=== PATIENT | female | born 2000 | race Caucasian/White ===

== ENCOUNTER 2021-11-24 00:12 | Emergency (ER) | payer BC ==
[2021-11-24] MEDS ORDERED: Sodium Chloride 0.9% 1000 ML 1,000 ML IV STA (00:41)
[2021-11-24] MEDS ORDERED: Zofran 4 MG/2 ML VIAL IV ONE (00:41)
[2021-11-24] MEDS ORDERED: TORAdol 30 mg Injection IV ONE (00:41)
[2021-11-24] MEDS ORDERED: Zofran 4 MG/2 ML VIAL ONE (00:45)
[2021-11-24] MEDS ORDERED: Sodium Chloride 0.9% 1000 ML 1,000 ML ONE (00:45)
[2021-11-24] MEDS ORDERED: TORAdol 30 mg Injection ONE (00:45)
[2021-11-24 00:55] LABS: Absolute Neutrophil Ct (ANC) 11.47 x10^3/uL (1.4-6.9); Basophil (Absolute #) 0.03 x10^3/uL (0-0.4); Eosinophil % 0.2 % (0.00-5.0); Eosinophil (Absolute #) 0.02 x10^3/uL (0-0.5); Hematocrit 41.8 % (35-47); Hemoglobin 13.8 g/dL (12.0-16.0); Lymphocyte (Absolute #) 1.01 x10^3/uL (1.0-4.6); Lymphocytes % 7.8 % (24.0-44.0); Mean Cell Volume 92.7 fL (78-100); Mean Corpuscular Hemoglobin 30.6 pg (26-32); Mean Platelet Volume 9.3 fL (7.5-11.0); Monocytes % 2.3 % (0.0-12.0); Neutrophil % 89.1 % (36.0-66.0); Platelet Count 343 x10^3/uL (150-450); Red Blood Count 4.51 x10^6/uL (4.1-5.4); Red Cell Distribution Width 12.6 % (11.5-14.0); White Blood Count 12.9 x10^3/uL (4.0-10.5)
--- NOTE | 2021-11-24 00:56 | ERPHSYRPT ---
- History of Present Illness Time Seen by Provider: 11/24/21 00:40 Historian: patient, family Exam Limitations: no limitations Patient Subjective Stated Complaint: pt states "I [place] [facility] [place] said [place] had a kidney stone. The pain is so bad." Triage Nursing Assessment: pt ambulated into the er; pt is axo x4; c/o left flank pain and LLQ pain; pt states 10/10 pain to LLQ and left flank pain; hyperactive bowel sounds in all quads; tenderness to LLQ; c/o constipation; urine yellow and cloudy; pt states burning and pain with urination; vitals wnl Physician History: This is a 21-year-old white female who was seen at [facility] approximately 3 days ago because of pain in the left flank area. Patient was told that she had a negative test and that there was evidence of a kidney stone present. No CAT scan was obtained. Patient refuses any narcotic pain medication at this time. She has had nausea. She has had no vomiting or diarrhea. The pain is moving caudally in the back area. It is not improving. Patient does not have much belly pain. It is in the flank area primarily on the left side. The pain came on suddenly 3 days ago. She is never had anything like this before Timing/Duration: day(s) (3) Activities at Onset: none Quality: aching, pressure Abdominal Pain Onset Location: flank (Left flank) Pain Radiation: flank Severity of Pain-Max: moderate Severity of Pain-Current: moderate Modifying Factors: Improves With: nothing Associated Symptoms: denies symptoms Previous symptoms: no prior history Allergies/Adverse Reactions: No Known Drug Allergies Allergy (Unverified 11/24/21 00:26) Hx Tetanus, Diphtheria Vaccination/Date Given: No Hx Influenza Vaccination/Date Given: Yes Hx Pneumococcal Vaccination/Date Given: No Immunizations Up to Date: No Travel Risk - International Travel Have you traveled outside of the country in past 3 weeks: No - Coronavirus Screening Are you exhibiting any of the following symptoms?: No Close contact with a COVID-19 positive Pt in past 14-21 Days: No - Vaccine Status Have you recieved a Covid-19 vaccination: No - Review of Systems Constitutional: No Symptoms Eyes: No Symptoms Ears, Nose, & Throat: No Symptoms Respiratory: No Symptoms Cardiac: No Symptoms Abdominal/Gastrointestinal: No Symptoms Genitourinary Symptoms: Flank Pain (Left flank pain) Musculoskeletal: No Symptoms Skin: No Symptoms Neurological: No Symptoms Psychological: No Symptoms Endocrine: No Symptoms Hematologic/Lymphatic: No Symptoms Immunological/Allergic: No Symptoms All Other Systems: Reviewed and Negative - Past Medical History Pertinent Past Medical History: No - Past Surgical History Past Surgical History: Yes - Social History Smoking Status: Never smoker Exposure to second hand smoke: No Drug Use: none Patient Lives Alone: No - Female History Hx Now: No - Nursing Vital Signs Nursing Vital Signs: Initial Vital Signs Temperature 97.8 F 11/24/21 00:27 Pulse Rate 98 H 11/24/21 00:27 Respiratory Rate 20 11/24/21 00:27 Blood Pressure 130/84 11/24/21 00:27 O2 Sat by Pulse Oximetry 99 11/24/21 00:27 Pain Scale Pain Intensity 5 - Physical Exam General Appearance: mild distress, alert, anxiety Eye Exam: PERRL/EOMI, eyes nml inspection Ears, Nose, Throat Exam: normal ENT inspection, moist mucous membranes Neck Exam: normal inspection, non-tender, supple, full range of motion Respiratory Exam: normal breath sounds, lungs clear, No chest tenderness, No respiratory distress Cardiovascular Exam: regular rate/rhythm, normal heart sounds, normal peripheral pulses Gastrointestinal/Abdomen Exam: soft, normal bowel sounds, No tenderness Pelvic Exam: not done Rectal Exam: not done Back Exam: normal inspection, normal range of motion, CVA tenderness (Left side), No vertebral tenderness Extremity Exam: normal inspection, normal range of motion, pelvis stable Neurologic Exam: alert, oriented x 3, cooperative, ear nose throat physician II-XII nml as tested, normal mood/affect, nml cerebellar function, nml station & gait, sensation nml Skin Exam: normal color, warm, dry Lymphatic Exam: No adenopathy SpO2 Interpretation: normal SpO2: 99 O2 Delivery: Room Air - Course Nursing assessment & vital signs reviewed: Yes Ordered Tests: Active Orders 24 hr Category Date Time Status IV Insertion STAT Care 11/24/21 00:41 Active ABDOMEN AND PELVIS W/0 CONTRAS [CT] Stat Exams 11/24/21 00:42 Taken AMYLASE Stat Lab 11/24/21 00:53 Completed CBC W DIFF Stat Lab 11/24/21 00:53 Completed CMP Stat Lab 11/24/21 00:53 Completed CULTURE,URINE Stat Lab 11/24/21 00:46 Received LIPASE Stat Lab 11/24/21 00:53 Completed UA W/RFX CULTURE Stat Lab 11/24/21 00:46 Completed Medication Summary Discontinued Medications Generic Name Dose Route Start Last Admin Trade Name John PRN Reason Stop Dose Admin Sodium Chloride 1,000 mls @ 999 mls/hr 11/24/21 00:41 11/24/21 01:52 Sodium Chloride 0.9% 1000 Ml IV 11/24/21 01:41 Infused .Q1H1M STA Infusion Sodium Chloride Confirm 11/24/21 00:45 Sodium Chloride 0.9% 1000 Ml Administered 11/24/21 00:46 Dose 1,000 mls @ ud .ROUTE .STK-MED ONE Ketorolac Tromethamine 30 mg 11/24/21 00:41 11/24/21 00:48 Ketorolac Tromethamine 30 Mg/Ml Inj IV 11/24/21 00:42 30 mg STAT ONE Administration Ketorolac Tromethamine Confirm 11/24/21 00:45 Ketorolac Tromethamine 30 Mg/Ml Inj Administered 11/24/21 00:46 Dose 30 mg .ROUTE .STK-MED ONE Ondansetron HCl 4 mg 11/24/21 00:41 11/24/21 00:48 Ondansetron Hcl 4 Mg/2 Ml Vial IV 11/24/21 00:42 4 mg STAT ONE Administration Ondansetron HCl Confirm 11/24/21 00:45 Ondansetron Hcl 4 Mg/2 Ml Vial Administered 11/24/21 00:46 Dose 4 mg .ROUTE .STK-MED ONE Lab/Rad Data: Laboratory Result Diagrams 11/24/21 00:53 11/24/21 00:53 Laboratory Results 11/24/21 11/24/21 11/24/21 Range/Units 00:53 00:53 00:46 WBC 12.9 H (4.0-10.5) x10^3/uL RBC 4.51 (4.1-5.4) x10^6/uL Hgb 13.8 (12.0-16.0) g/dL Hct 41.8 (35-47) % MCV 92.7 (78-100) fL MCH 30.6 (26-32) pg MCHC 33.0 (32-36) g/dL RDW 12.6 (11.5-14.0) % Plt Count 343 (150-450) x10^3/uL MPV 9.3 (7.5-11.0) fL Gran % 89.1 H (36.0-66.0) % Immature Gran % (Auto) 0.4 (0.00-0.4) % Nucleat RBC Rel Count 0.0 (0.00-0.1) % Eos # (Auto) 0.02 (0-0.5) x10^3/uL Immature Gran # (Auto) 0.05 H (0.00-0.03) x10^3u/L Absolute Lymphs (auto) 1.01 (1.0-4.6) x10^3/uL Absolute Monos (auto) 0.30 (0.0-1.3) x10^3/uL Absolute Nucleated RBC 0.00 (0.00-0.01) x10^3u/L Lymphocytes % 7.8 L (24.0-44.0) % Monocytes % 2.3 (0.0-12.0) % Eosinophils % 0.2 (0.00-5.0) % Basophils % 0.2 (0.0-0.4) % Absolute Granulocytes 11.47 H (1.4-6.9) x10^3/uL Basophils # 0.03 (0-0.4) x10^3/uL Sodium 136 L (137-145) mmol/L Potassium 3.7 (3.5-5.1) mmol/L Chloride 98 (98-107) mmol/L Carbon Dioxide 29 (22-30) mmol/L Anion Gap 13.2 (5-15) MEQ/L BUN 10 (7-17) mg/dL Creatinine 0.92 (0.52-1.04) mg/dL Estimated GFR > 60.0 ML/MIN Glucose 114 H (74-106) mg/dL Calcium 9.4 (8.4-10.2) mg/dL Total Bilirubin 1.00 (0.2-1.3) mg/dL AST 25 (14-36) U/L ALT 19 (0-35) U/L Alkaline Phosphatase 131 H (38-126) U/L Serum Total Protein 8.0 (6.3-8.2) g/dL Albumin 4.4 (3.5-5.0) g/dL Amylase 83 (30-110) U/L Lipase 135 (23-300) U/L Urinalys Dipstick Clnc MAIN LAB Urine Color YELLOW (YELLOW) Urine Appearance CLOUDY (CLEAR) Urine pH 8.5 (5-6) Ur Specific [place] 1.020 (1.005-1.025) POC Urine Protein Conf 100 (Negative) Urine Ketones MODERATE-40 (NEGATIVE) Urine Nitrite NEGATIVE (NEGATIVE) Urine Bilirubin NEGATIVE (NEGATIVE) Urine Urobilinogen 4 (0-1) mg/dL Urine Leukocytes SMALL (NEGATIVE) Urine WBC (Auto) >100 (0-5) /HPF Urine RBC (Auto) 51-100 (0-2) /HPF U Epithel Cells (Auto) FEW (FEW) /HPF Urine Bacteria (Auto) MANY (NEGATIVE) /HPF Urine RBC MODERATE (0-5) Kei/ul Unidentified Crystals 25-50 (NEGATIVE) /HPF Other Casts (Auto) 0-2 (NEGATIVE) /LPF Urine Mucus (Auto) SLIGHT (NEGATIVE) /HPF Ur Culture Indicated? YES Urine Glucose NEGATIVE (NEGATIVE) mg/dL - Progress Progress: improved, pain not gone completely, re-examined Progress Note: 11/24/21 02:15 CAT scan of the abdomen pelvis without contrast shows a left 2 to 3 mm ureteral stone at the UV junction. There is hydronephrosis on the left. There is a right renal stone without obstruction. There is a right lower lobe nodule. These were discussed with the patient Counseled pt/family regarding: lab results, diagnosis, need for follow-up, rad results - Departure Departure Disposition: Home Clinical Impression: Left ureteral stone Condition: Stable Critical Care Time: No Referrals: ASHLEY DEL VALLE [Primary Care Provider] - Follow up/PCP as directed Additional Instructions: Drink plenty of fluids. Use Tylenol and ibuprofen as discussed to control pain. Return to the emergency department if symptoms worsen. Call your primary care physician on 11/25/2021, to follow-up on the right pulmonary nodule that is present.
[2021-11-24 01:03] LABS: ALBUMIN 4.4 g/dL (3.5-5.0); ALKALINE PHOSPHATASE 131 U/L (38-126); AMYLASE 83 U/L (30-110); ANION GAP 13.2 MEQ/L (5-15); BLOOD UREA NITROGEN 10 mg/dL (7-17); CHLORIDE 98 mmol/L (98-107); Calcium 9.4 mg/dL (8.4-10.2); Carbon Dioxide 29 mmol/L (22-30); Creatinine 1 0.92 mg/dL (0.52-1.04); EST GLOMERULAR FILTRATION RATE > 60.0 ML/MIN; Glucose 114 mg/dL (74-106); LIPASE 135 U/L (23-300); Potassium 3.7 mmol/L (3.5-5.1); SGOT/AST 25 U/L (14-36); SGPT/ALT 19 U/L (0-35); SODIUM 136 mmol/L (137-145)
[2021-11-24 01:04] LABS: Epithelial Cells FEW /HPF (FEW); Mucus SLIGHT /HPF (NEGATIVE); RBC 51-100 /HPF (0-2); WBC >100 /HPF (0-5)
[2021-11-24 01:05] LABS: Appearance CLOUDY (CLEAR); Bilirubin NEGATIVE (NEGATIVE); Dipstick done @ ? MAIN LAB; Glucose NEGATIVE (NEGATIVE); Ketones MODERATE-40 (NEGATIVE); Nitrite NEGATIVE (NEGATIVE); Ph 8.5 (5-6); Protein,Urine Dip 100 (Negative); RBC MODERATE Ery/ul (0-5); Urobilinogen 4 mg/dL (0-1)
[2021-11-24 01:07] LABS: Bacteria MANY /HPF (NEGATIVE); Crystals Unidentified 25-50 /HPF (NEGATIVE); Urine Cultured Indicated? YES
[2021-11-24] MEDS ORDERED: Flomax 0.4 MG PO ONE (02:14)
[2021-11-24] MEDS ORDERED: ROCEPHIN 1 Gm-D5w 50 ml Bag** 1 G/50 ML IVPB IV STA (02:17)
[2021-11-24] MEDS ORDERED: Levofloxacin 500 MG Tablet PO ONE (02:18)
[2021-11-24] MEDS ORDERED: Levofloxacin 500 MG Tablet ONE (02:20)
[2021-11-24] MEDS ORDERED: Flomax 0.4 MG ONE (02:20)
[2021-11-24] MEDS ORDERED: NORCO 5/325 MG PO ONE (02:20)
[2021-11-24] MEDS ORDERED: ROCEPHIN 1 Gm-D5w 50 ml Bag** 1 G/50 ML IVPB IV ONE (02:20)
[2021-11-24 03:00] VITALS: BP 95/56; PULSE 109; O2SAT 95
--- NOTE | 2021-11-24 07:57 | XRAY ---
Indication: Left flank pain. Multiple contiguous axial images obtained through the abdomen and pelvis without contrast. Comparison: None Lung bases demonstrates minimal fibrosis/scarring. 7 mm right lower lobe noncalcified nodule possibly granulomatous in this demographic. No infiltrate or effusion. Heart is not enlarged. Noncontrasted stomach and bowel loops appear nonobstructed. No free fluid/air. 2-3 mm distal left UVJ calculus. Proximal left ureter is prominent up to 8-9 mm along with mild hydronephrosis and renal edema consistent with partial obstructive rapidly. Right kidney demonstrates nonobstructing punctate calculus. Remaining liver, gallbladder, pancreas, spleen, adrenal glands, kidneys, ureters, bladder, uterus, and aorta are unremarkable for noncontrast exam. Osseous structures intact. Impression: 1. 2-3 mm distal left UVJ calculus producing obstructive rapidly. Additional nonobstructing right renal micro-calculus. 2. 7 mm right lower lobe noncalcified nodule, possibly granulomatous. Outside comparison studies recommended if available. If not, recommend CT chest to establish baseline with follow-up per Fleischner guidelines. Comment: Preliminary interpretation made by [facility]. No critical discrepancy.
== END 2021-11-24 03:00 | disposition home or self-care (01) ==
LOC: ED 00:12
DX: N13.2 Hydronephrosis with renal and ureteral calculous obstruction (principal); N39.0 Urinary tract infection, site not specified; R10.9 Unspecified abdominal pain; R11.0 Nausea; Z28.310 Unvaccinated for COVID-19
CPT/HCPCS: 36000; 36415; 74176; 80053; 81015; 82150; 83690; 85025; 87077; 87086; 87186; 96360; 96365; 96374; 96375; 99284; J0696; J1885; J2405; A9270-GY

== ENCOUNTER 2022-04-03 09:42 | Emergency (ER) | payer BC, OTHER ==
[2022-04-03] MEDS ORDERED: ZOFRAN ODT 4 MG PO ONE (09:59)
[2022-04-03] MEDS ORDERED: ZOFRAN ODT 4 MG ONE (10:00)
[2022-04-03 10:11] LABS: Appearance CLEAR (CLEAR); Bilirubin NEGATIVE (NEGATIVE); Glucose NEGATIVE (NEGATIVE); Ketones NEGATIVE (NEGATIVE); Ph 6.5 (5-6); RBC MODERATE Ery/ul (0-5); Specific Gravity 1.025 (1.005-1.025)
[2022-04-03 10:12] LABS: Dipstick done @ ? MAIN LAB; Nitrite NEGATIVE (NEGATIVE); Protein,Urine Dip TRACE (Negative); Urobilinogen 0.2 mg/dL (0-1)
[2022-04-03 10:13] LABS: Bacteria RARE /HPF (NEGATIVE); Epithelial Cells RARE /HPF (FEW); Mucus MODERATE /HPF (NEGATIVE)
[2022-04-03 10:14] LABS: Urine Cultured Indicated? YES
--- NOTE | 2022-04-03 10:34 | ERPHSYRPT ---
- History of Present Illness Source: patient Exam Limitations: physical impairment Patient Subjective Stated Complaint: headache and nausea Triage Nursing Assessment: Pt works in patient access and began having a sudden onset headache with double vision and nausea, double vision has subsided but the headache has remained and pt describes it as a migraine but has no history of any, hypertensive, rates head pain as 8/10, nauseous but denies vomiting, was fine when she woke up this morning, was registering a pt when she suddenly became dizzy and thought she was going to pass out, no other logan problems, pulses normal, skin n/w/d Physician History: 21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 Pain is described as throbbing and currently a 6/10 on scale. Pain 10/10 at worse. Pt has no h/o MGHA's. She has nausea wo vomiting. Pt denies fever/focal weakness/head trauma/cough/coryza. status is undetermined. Timing/Duration: today (7:30AM today) Quality: throbbing Head Pain Location: temporal Severity of Pain-Max: severe Severity of Pain-Current: moderate Recent Head Trauma: no recent headache/trauma Modifying Factors: Improves With: other (Nothing) Associated Symptoms: nausea/vomiting, vision changes, visual disturbance, weakness, No confusion, No dizziness, No fatigue, No facial pain, No fever/chills, No flushing, No light-headedness, No loss of consciousness, No nasal congestion, No nasal drainage, No neck pain, No numbness in legs/feet, No rash, No sweating, No scotoma, No seizures, No sinus infection, No sensitive to light, No speech problems, No stiff neck, No trouble walking Previous symptoms: no prior history Allergies/Adverse Reactions: No Known Drug Allergies Allergy (Verified 04/03/22 10:00) Hx Tetanus, Diphtheria Vaccination/Date Given: No Hx Influenza Vaccination/Date Given: Yes Hx Pneumococcal Vaccination/Date Given: No Travel Risk - International Travel Have you traveled outside of the country in past 3 weeks: No - Coronavirus Screening Are you exhibiting any of the following symptoms?: Yes Symptoms: Headaches/Body Aches/Fatigue Close contact with a COVID-19 positive Pt in past 14-21 Days: No - Vaccine Status Have you recieved a Covid-19 vaccination: No - Review of Systems Constitutional: No Symptoms Eyes: No Symptoms, Other (Blurry vision) Ears, Nose, & Throat: No Symptoms Respiratory: No Symptoms Cardiac: No Symptoms Abdominal/Gastrointestinal: No Symptoms, Nausea Genitourinary Symptoms: No Symptoms Musculoskeletal: No Symptoms Skin: No Symptoms Neurological: No Symptoms, Headache Psychological: No Symptoms Endocrine: No Symptoms Hematologic/Lymphatic: No Symptoms Immunological/Allergic: No Symptoms - Past Medical History Pertinent Past Medical History: No - Past Surgical History Past Surgical History: Yes - Social History Smoking Status: Never smoker Exposure to second hand smoke: No Drug Use: none Patient Lives Alone: No Significant Family History: no pertinent family hx - Female History Hx Now: No (Test peding) - Nursing Vital Signs Nursing Vital Signs: Initial Vital Signs Temperature 96.6 F 04/03/22 09:45 Pulse Rate 67 04/03/22 09:45 Blood Pressure 148/93 04/03/22 09:45 O2 Sat by Pulse Oximetry 99 04/03/22 09:45 Pain Scale Pain Intensity 4 Hypertensive - Physical Exam General Appearance: no apparent distress Eye Exam: PERRL/EOMI, eyes nml inspection Ears, Nose, Throat Exam: normal ENT inspection, TMs normal, pharynx normal, moist mucous membranes Neck Exam: normal inspection, non-tender, supple, full range of motion, No meningismus, No mass, No Brudzinski, No Kernig's, No carotid bruit Respiratory Exam: normal breath sounds, lungs clear, airway intact Cardiovascular Exam: regular rate/rhythm, normal heart sounds, normal peripheral pulses, capillary refill <2 sec, No murmur Gastrointestinal/Abdominal Exam: soft, normal bowel sounds, No tenderness Back Exam: normal inspection, normal range of motion, No CVA tenderness Extremity Exam: normal inspection, normal range of motion Mental Status Exam: alert, oriented x 3, cooperative coal cager Exam: normal hearing, normal speech, PERRL, tongue midline Coordination/Gait Exam: normal finger to nose, normal gait, normal cerebellar function Motor/Sensory Exam: no motor deficit, no sensory deficit, no pronator drift, negative Babinski's sign DTR Exam: bicep (R): 2+, bicep (L): 2+ Skin Exam: normal color, warm, dry Lymphatic Exam: No adenopathy SpO2 Interpretation: normal SpO2: 99 O2 Delivery: Room Air - Course Nursing assessment & vital signs reviewed: Yes - CT Exams Head CT Interpretation: Discussed w/radiologist (CT head neg) Ordered Tests: Active Orders 24 hr Category Date Time Status HEAD WITHOUT CONTRAST [CT] Stat Exams 04/03/22 09:57 Completed CULTURE,URINE Stat Lab 04/03/22 10:10 Received HCG,QUALITATIVE URINE Stat Lab 04/03/22 10:01 Completed POCT GLUCOSE Stat Lab 04/03/22 09:53 Completed UA W/RFX CULTURE Stat Lab 04/03/22 10:10 Completed Medication Summary Discontinued Medications Generic Name Dose Route Start Last Admin Trade Name Freq PRN Reason Stop Dose Admin Non-Formulary Medication 0 each 04/03/22 11:30 04/03/22 11:32 Non-Formulary Drug 1 Each Each PO 04/03/22 11:31 1 each NOW ONE Administration Ondansetron HCl 4 mg 04/03/22 09:59 04/03/22 10:04 Zofran 4 Mg/Udtablet Orally Disintegrating PO 04/03/22 10:00 4 mg STAT ONE Administration Ondansetron HCl Confirm 04/03/22 10:00 Zofran 4 Mg/Udtablet Orally Disintegrating Administered 04/03/22 10:01 Dose 4 mg .ROUTE .STK-MED ONE Lab/Rad Data: Laboratory Results 04/03/22 04/03/22 04/03/22 Range/Units 10:10 10:01 10:00 POC Glucometer (74 to 106) mg/dL Urinalys Dipstick Clnc MAIN LAB Urine Color YELLOW (YELLOW) Urine Appearance CLEAR (CLEAR) Urine pH 6.5 (5-6) Ur Specific [place] 1.025 (1.005-1.025) POC Urine Protein Conf TRACE (Negative) Urine Ketones NEGATIVE (NEGATIVE) Urine Nitrite NEGATIVE (NEGATIVE) Urine Bilirubin NEGATIVE (NEGATIVE) Urine Urobilinogen 0.2 (0-1) mg/dL Urine Leukocytes NEGATIVE (NEGATIVE) Urine WBC (Auto) 3-5 (0-5) /HPF Urine RBC (Auto) 3-5 (0-2) /HPF U Epithel Cells (Auto) RARE (FEW) /HPF Urine Bacteria (Auto) RARE (NEGATIVE) /HPF Urine RBC MODERATE (0-5) Kei/ul Urine Mucus (Auto) MODERATE (NEGATIVE) /HPF Ur Culture Indicated? YES Urine Glucose NEGATIVE (NEGATIVE) mg/dL Urine HCG, Qual NEGATIVE (Negative) Influenza Type A Ag NEGATIVE (NEGATIVE) Influenza Type B Ag NEGATIVE (NEGATIVE) RSV (PCR) NEGATIVE (Negative) SARS-CoV-2 (PCR) NEGATIVE (NEGATIVE) 04/03/22 Range/Units 09:53 POC Glucometer 96 (74 to 106) mg/dL Urinalys Dipstick Clnc Urine Color (YELLOW) Urine Appearance (CLEAR) Urine pH (5-6) Ur Specific [place] (1.005-1.025) POC Urine Protein Conf (Negative) Urine Ketones (NEGATIVE) Urine Nitrite (NEGATIVE) Urine Bilirubin (NEGATIVE) Urine Urobilinogen (0-1) mg/dL Urine Leukocytes (NEGATIVE) Urine WBC (Auto) (0-5) /HPF Urine RBC (Auto) (0-2) /HPF U Epithel Cells (Auto) (FEW) /HPF Urine Bacteria (Auto) (NEGATIVE) /HPF Urine RBC (0-5) Kei/ul Urine Mucus (Auto) (NEGATIVE) /HPF Ur Culture Indicated? Urine Glucose (NEGATIVE) mg/dL Urine HCG, Qual (Negative) Influenza Type A Ag (NEGATIVE) Influenza Type B Ag (NEGATIVE) RSV (PCR) (Negative) SARS-CoV-2 (PCR) (NEGATIVE) - Progress Progress Note: 04/03/22 12:01 50mg po Imitrex w improvement(Sq not given because pt does not want to be stuck) BP decreased during stay Counseled pt/family regarding: lab results, diagnosis, need for follow-up, rad results - Departure Departure Disposition: Home Clinical Impression: Migraine Condition: Stable Critical Care Time: No Referrals: ASHLEY DEL VALLE [Primary Care Provider] - Follow up/PCP as directed Instructions: Migraines (DC) Additional Instructions: Follow up with your family MD Watch your blood pressure Take Imitrex at first sign of headache Return to ER for focal weakness, temperature greater than 100.5, or headache that worsens after treatment Prescriptions: SUMAtriptan succinate [Imitrex 50 mg] 50 mg PO Q2H/PRN PRN #10 tablet MDD 2 tabs PRN Reason: Headache
[2022-04-03 10:40] LABS: INFLUENZA A NEGATIVE (NEGATIVE); INFLUENZA B NEGATIVE (NEGATIVE); RESPIRATORY SYNCTIAL VIRUS NEGATIVE (Negative); SARS-CoV-2 Xpert Express NEGATIVE (NEGATIVE)
--- NOTE | 2022-04-03 10:47 | XRAY ---
Indication: Migraines, nausea, and vomiting. Multiple contiguous axial images obtained through the head without contrast. Comparison: None Normal appearing brain parenchyma, ventricles, and bony calvarium. Visualized paranasal sinuses and mastoid air cells are clear. Impression: Normal CT head without contrast exam.
[2022-04-03 10:59] VITALS: BP 106/91
[2022-04-03] MEDS ORDERED: NON-FORMULARY ITEM PO ONE (11:30)
[2022-04-03 12:15] VITALS: PULSE 68
[2022-04-03 21:14] VITALS: O2SAT 99
== END 2022-04-03 12:15 | disposition home or self-care (01) ==
LOC: ED 09:42
DX: G43.909 Migraine, unspecified, not intractable, without status migrainosus (principal); H53.8 Other visual disturbances; R11.0 Nausea; Z28.310 Unvaccinated for COVID-19
CPT/HCPCS: 0241U; 70450; 81015; 81025; 82947; 87086; 99283; Q0162